=== PATIENT | male | born 1950 | race Caucasian/White ===

== ENCOUNTER 2019-11-29 14:01 | Outpatient (CLI) | payer MEDICARE, BC, SELFPAY | END 2019-11-29 14:02 | disposition home or self-care (01) | PROVIDERS: PCP Family Medicine; Visit Provider Specialist | DX: C80.1 Malignant (primary) neoplasm, unspecified (principal); D22.62 Melanocytic nevi of left upper limb, including shoulder | CPT/HCPCS: 88305; 88342 ==

== ENCOUNTER 2020-02-15 14:40 | Outpatient (CLI) | payer MEDICARE, SELFPAY ==
--- NOTE | ~2020-02-15 | XR_ITS ---
EXAMINATION: XR lg joint inject/asp add, XR lg joint inject/asp w image DATE: 02/15/2020 15:56 INDICATION: Bilateral hip arthritis TECHNIQUE: A time-out was performed to verify the patient's name, date of , and procedure to b e performed. The procedure including the risks, benefits, and alternatives was discussed with the pat ient. Risks discussed included bleeding and infection. The patient understood the risks and agreed to proceed. Attention was first turned to the left hip joint. The skin overlying the left hip joint was prepped and draped in usual sterile fashion. Anesthetic was administered with 1% lidocaine subcutan eously. A 22 G needle was advanced under fluoroscopic guidance into the joint. Injection of 0.6 mL of Omnipaque 240 confirmed intra-articular position of the needle. Subsequently, injectate consistin g of 4 mL of a 1:1 mixture of 0.5% Marcaine: 40 mg/mL Depo-Medrol for a total dose of 80 mg Depo-Medr ol was instilled. Washout of contrast was seen confirming intra-articular administration. The needle was removed and the entry site was cleaned and dressed. Attention was then turned to the right hip. The skin overlying the left hip joint was prepped and imer ped in usual sterile fashion. Anesthetic was administered with 1% lidocaine subcutaneously. A 22 G needle was advanced under fluoroscopic guidance into the joint. Injection of 0.6 mL of Omnipaque 240 confirmed intra-articular position of the needle. Subsequently, injectate consisting of 4 mL of a 1 :1 mixture of 0.5% Marcaine: 40 mg/mL Depo-Medrol for a total dose of 80 mg Depo-Medrol was instilled . Washout of contrast was seen confirming intra-articular administration. The needle was removed and the entry site was cleaned and dressed. There were no immediate complications. Fluoroscopy exposure time was 1.1 minutes. The total number of images was 4. FINDINGS: Real-time fluoroscopy demonstrates the needle in first the left hip joint and subsequently the right hip joint. Patient's pain prior to procedure:5/10 on the right and 3/0 on the left. Patien t's pain following the procedure: 3/10 on the right and 0/10 on the left. IMPRESSION: 1. Left hip joint injection of local anesthetic and steroid with decrease in the patient's presenting pain. 2. Right hip joint injection of local anesthetic and steroid with decrease in the patient's presentin g pain. Reviewed, dictated and finalized at location A. IMPRESSION: 1. Left hip joint injection of local anesthetic and steroid with decrease in th e patient's presenting pain. 2. Right hip joint injection of local anesthetic and steroid with decrease in t he patient's presenting pain.
== END 2020-02-15 14:41 | disposition home or self-care (01) ==
LOC: CHSIMG 14:43
PROVIDERS: PCP Family Medicine; Visit Provider Orthopaedic Surgery
DX: M16.0 Bilateral primary osteoarthritis of hip (principal)
CPT/HCPCS: 20610; 77002; J1030; Q9965

== ENCOUNTER 2021-01-01 08:23 | Outpatient (CLI) | payer MEDICARE, SELFPAY ==
--- NOTE | ~2021-01-01 | XR_ITS ---
EXAMINATION: XR lg joint inject/asp w image, XR lg joint inject/asp add EXAM DATE: 01/01/2021 10:03 (accession [id number]), 01/01/2021 10:04 (accession [id number]) INDICATION: B/L hip arthritis, right hip worse. TECHNIQUE: This procedure was performed by Dr. Howard Jeffries, radiologist. I discussed procedure inclu ding the risks, benefits and alternatives with the patient. Risks discussed included bleeding and inf ection. The patient understood the risks and agreed to proceed. A time-out was performed to verify the patient's name, date of , and procedure. The skin over lying the right joint was prepped and draped in usual sterile fashion. Anesthetic was administered w ith 2 milliliters 1% lidocaine subcutaneously. A 22 G needle was advanced under fluoroscopic guidanc e into the joint. 2 separate syringes of the same mixture was drawn up, each containing 2 cc of Omnip aque 240, 2 cc 0.5% bupivacaine, 80 mg Depo-Medrol. One of these doses was then injected into the rig ht hip. The needle was removed and the entry site was cleaned and dressed. The patient then sat up and laid down in the other direction on the fluoroscopic table and similar st andard sterile fashion used to prepare the left hip. A different 22-gauge needle was then advanced un mark fluoroscopic guidance. The remaining syringe of mixture as above was then injected into this. The re were no immediate complications. The DAP for this procedure was 0.6 Gycm2. A total of 2 images for the right hip, 3 for the left hip w ere saved and sent to PACS, images confirming intra-articular contrast bilaterally. FINDINGS: Real-time fluoroscopy demonstrates the needle and contrast in the right and subsequently le ft hip joint. Patient states preprocedure right hip pain of 6 out of 10 and postprocedure right hip p ain of 6. Left hip had preprocedure pain of 3 out of 10 and postprocedure pain of 3. IMPRESSION: Successful bilateral hip joint injection with steroid, bupivacaine, Omnipaque. Reviewed, dictated and finalized at location B. IMPRESSION: Successful bilateral hip joint injection with steroid, bupivacaine, Omnipaque.
== END 2021-01-01 08:24 | disposition home or self-care (01) ==
PROVIDERS: PCP Family Medicine; Visit Provider Orthopaedic Surgery
DX: M16.11 Unilateral primary osteoarthritis, right hip (principal); M16.12 Unilateral primary osteoarthritis, left hip
CPT/HCPCS: 20610; 77002; J1030; Q9965

== ENCOUNTER 2021-07-30 07:39 | Outpatient (CLI) | payer MEDICARE, SELFPAY ==
--- NOTE | ~2021-07-30 | XR_ITS ---
XR lg joint inject/asp add, XR lg joint inject/asp w image INDICATION: Bilateral hip arthritis. TECHNIQUE: After discussing the procedure with the patient, including the possible risks, complicatio ns, and benefits, oral consent was obtained. A timeout was performed verifying the patient's name, d ate of , and site of injection. The skin overlying the joint was prepped and draped in usual st erile fashion. Anesthetic was administered with 1% lidocaine subcutaneously. A 22 G needle was adva nced under fluoroscopic guidance into the right and left hip joints. Injection of 1cc of Omnipaque 2 40 was performed to verify intra-articular position of the needle. Intra-articular needle position w as confirmed. Subsequently, injectate consisting of 80 mg Depo-Medrol and 2 cc 0.5% Marcaine adminis tered bilaterally were instilled. The needle was removed and the entry site was cleaned and dressed. There were no immediate complications. IMPRESSION: 1: Successful bilateral injection of anesthetic and steroid in bilateral hip joints. Reviewed, dictated and finalized at location B. IMPRESSION: 1: Successful bilateral injection of anesthetic and steroid in bilateral hip luis ints.
== END 2021-07-30 07:40 | disposition home or self-care (01) ==
LOC: CHSIMG 07:42
PROVIDERS: PCP Family Medicine; Visit Provider Orthopaedic Surgery
DX: M16.11 Unilateral primary osteoarthritis, right hip (principal); M16.12 Unilateral primary osteoarthritis, left hip
CPT/HCPCS: 20610; 77002; J1030; Q9965

== ENCOUNTER 2021-10-29 15:57 | Outpatient (CLI) | payer MEDICARE, SELFPAY | END 2021-10-29 15:58 | disposition home or self-care (01) | LOC: CHSOUTPT 16:07 | PROVIDERS: PCP Family Medicine; Visit Provider Specialist | DX: D22.61 Melanocytic nevi of right upper limb, including shoulder (principal) | CPT/HCPCS: 88305; 88342 ==

== ENCOUNTER 2022-02-07 08:05 | Outpatient (CLI) | payer MEDICARE, SELFPAY ==
--- NOTE | ~2022-02-07 | XR_ITS ---
CORRECTED REPORT order change 02/10/22 JM XR lg joint inject/asp w image, XR lg joint inject/asp add 02/07/2022 10:08 (accession [id number]), 02/07/2022 10:16 (accession [id number]) XR lg joint inject/asp w image, XR lg joint inject/asp w image INDICATION: Bilateral hip arthritis TECHNIQUE: After discussing the procedure with the patient, including the possible risks, complications, and benefits, oral consent was obtained. A timeout was performed verifying the patient's name, date of , and site of injection. The skin overlying the joint was prepped and draped in usual sterile fashion. Anesthetic was administered with 1% lidocaine subcutaneously. A 22 G needle was advanced under fluoroscopic guidance into the right and left hip joints. Injection of 1cc of Omnipaque 240 was performed to verify intra- articular position of the needle. Intra-articular needle position was confirmed. Subsequently, injectate consisting of 80 mg Depo-Medrol and 2 cc 0.5% Marcaine were instilled. The needle was removed and the entry site was cleaned and dressed. There were no immediate complications.] IMPRESSION: 1.: Successful bilateral injection of anesthetic and steroid into each hip joint. Reviewed, dictated and finalized at location B. MTDD IMPRESSION: 1.: Successful bilateral injection of anesthetic and steroid into each hip kym nt.
== END 2022-02-07 08:06 | disposition home or self-care (01) ==
LOC: CHSIMG 08:09
PROVIDERS: PCP Family Medicine; Visit Provider Orthopaedic Surgery
DX: M16.0 Bilateral primary osteoarthritis of hip (principal)
CPT/HCPCS: 20610; 77002; J1030; Q9965

== ENCOUNTER 2022-10-16 09:45 | Outpatient (CLI) | payer MEDICARE, SELFPAY ==
--- NOTE | ~2022-10-16 | XR_ITS ---
EXAMINATION: XR lg joint inject/asp w image, XR lg joint inject/asp add DATE: 10/16/2022 10:43 INDICATION: Bilateral hip osteoarthritis with pain TECHNIQUE: A time-out was performed to verify the patient's name, date of , and procedure to b e performed. The procedure including the risks, benefits, and alternatives was discussed with the pat ient. Risks discussed included bleeding and infection. The patient understood the risks and agreed to proceed. Attention was first turned to the right hip. The skin overlying the right hip joint was pre pped and draped in usual sterile fashion. Anesthetic was administered with 1% lidocaine subcutaneous ly. A 22 G needle was advanced under fluoroscopic guidance into the joint. Injection of 1 mL of Omn ipaque 240 confirmed intra-articular position of the needle. Subsequently, injectate consisting of 4 mL of a 1:1 mixture of 0.5% Marcaine: 40 mg/mL Depo-Medrol for a total dosage of 80 mg Depo-Medrol w as instilled. Washout of contrast was seen confirming intra-articular administration. The needle was removed and the entry site was cleaned and dressed. Attention was then turned to the left hip. The skin overlying the left hip joint was prepped and drap ed in usual sterile fashion. Anesthetic was administered with 1% lidocaine subcutaneously. A 22 G n eedle was advanced under fluoroscopic guidance into the joint. Injection of 1 mL of Omnipaque 240 co nfirmed intra-articular position of the needle. Subsequently, injectate consisting of 4 mL of a 1:1 mixture of 0.5% Marcaine: 40 mg/mL Depo-Medrol for a total dosage of 80 mg Depo-Medrol was instilled. Washout of contrast was seen confirming intra-articular administration. The needle was removed and t he entry site was cleaned and dressed. There were no immediate complications. Fluoroscopy exposure ti me was 0.2 minutes. The total number of images was 4. FINDINGS: Real-time fluoroscopy demonstrates the needle in the right hip joint and subsequently in th e left hip joint. Patient's pain prior to procedure:6/10. Patient's pain following the procedure: 0/ 10. IMPRESSION: 1. Sessile left and right hip joint injections of local anesthetic and steroid with decrease in the p atient's presenting pain. Reviewed, dictated and finalized at location A. 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 Sessile left and right hip joint injections of local anesthetic and steroid with decrease in the patient's presenting pain.
== END 2022-10-16 09:46 | disposition home or self-care (01) ==
PROVIDERS: PCP Family Medicine; Visit Provider Orthopaedic Surgery
DX: M16.0 Bilateral primary osteoarthritis of hip (principal)
CPT/HCPCS: 20610; 77002; J1030

== ENCOUNTER 2022-11-18 16:42 | Outpatient (CLI) | payer MEDICARE, SELFPAY | END 2022-11-18 16:43 | disposition home or self-care (01) | LOC: CHSLAB 16:46 | PROVIDERS: PCP Family Medicine; Visit Provider Specialist | DX: C44.629 Squamous cell carcinoma of skin of left upper limb, including shoulder (principal) | CPT/HCPCS: 88305 ==

== ENCOUNTER 2024-02-16 13:24 | Outpatient (CLI) | payer MEDICARE, SELFPAY ==
--- NOTE | ~2024-02-16 | XR_ITS ---
EXAMINATION: XR lg joint inject/asp w image, XR lg joint inject/asp add DATE: 02/16/2024 14:40 INDICATION: Bilateral hip pain TECHNIQUE: A time-out was performed to verify the patient's name, date of , and procedure to b e performed. The procedure including the risks, benefits, and alternatives was discussed with the pat ient. Risks discussed included bleeding and infection. The patient understood the risks and agreed to proceed. Attention was first turned to the right hip. The skin overlying the right hip joint was pre pped and draped in usual sterile fashion. Anesthetic was administered with 1% lidocaine subcutaneous ly. A 22 G needle was advanced under fluoroscopic guidance into the joint. Injection of 1 mL of Omn ipaque 240 confirmed intra-articular position of the needle. Subsequently, injectate consisting of 3 mL of a 2:1 mixture of 0.5% Marcaine: 80 mg/mL Depo-Medrol for a total dose of 80 mg Depo-Medrol was instilled. Washout of contrast was seen confirming intra-articular administration. The needle was re moved and the entry site was cleaned and dressed. Attention was then turned to the left hip. The skin overlying the right hip joint was prepped and imer ped in usual sterile fashion. Anesthetic was administered with 1% lidocaine subcutaneously. A 22 G needle was advanced under fluoroscopic guidance into the joint. Injection of 1 mL of Omnipaque 240 c onfirmed intra-articular position of the needle. Subsequently, injectate consisting of 3 mL of a 2:1 mixture of 0.5% Marcaine: 80 mg/mL Depo-Medrol for a total dose of 80 mg Depo-Medrol was instilled. Washout of contrast was seen confirming intra-articular administration. The needle was removed and th e entry site was cleaned and dressed. There were no immediate complications. Fluoroscopy exposure june e for the combined procedures was 0.1 minutes. The total number of images was 4. Total DAP was 1.109 Gycm^2. FINDINGS: Real-time fluoroscopy demonstrates the needle in the right hip joint and subsequently in th e left hip joint. Patient's pain prior to procedure:6/10. Patient's pain following the procedure: 0/ 10. IMPRESSION: 1. Successful right hip joint injection of local anesthetic and steroid with decrease in the patient' s presenting pain. Line 2. Successful left hip joint injection of local anesthetic and steroid with decrease in the patient's presenting pain. Reviewed, dictated and finalized at location A. IMPRESSION: 1. Successful right hip joint injection of local anesthetic and steroid with de crease in the patient's presenting pain. Line 2. Successful left hip joint injection of local anesthetic and steroid with dec rease in the patient's presenting pain.
== END 2024-02-16 13:25 | disposition home or self-care (01) ==
LOC: ANHIMG 13:25
PROVIDERS: PCP Family Medicine; Visit Provider Orthopaedic Surgery
DX: M25.551 Pain in right hip (principal); M25.552 Pain in left hip
CPT/HCPCS: 20610; 77002; J1010; Q9966; Q9967

== ENCOUNTER 2024-11-18 12:13 | Outpatient (CLI) | payer MEDICARE, SELFPAY ==
--- NOTE | ~2024-11-18 | PE_ITS ---
EXAMINATION: PET_PETPSMAST_PT DATE: 11/18/2024 15:19 INDICATION: Prostate cancer TECHNIQUE: 4.054 mCi of Illucix Ga-68([id number]) was administered i.v. Low dose computed gabriela graphy (CT) images were acquired from the base of the brain to the base of the brain to the proximal thighs for attenuation correction and anatomic localization. Positron emission tomography (PET) image s were acquired in the same distribution beginning 92 minutes after injection. Images including fused PET/CT images were reconstructed in axial, coronal, and sagittal planes. Automated exposure control technique was employed. The dose-length product was 1276.25mGy-cm. COMPARISON: None FINDINGS: Head/neck: Typical pattern of symmetric physiologic increased activity in the lacrimal, parotid and submandibula r glands as well as along the mucosa of the nasal and oral cavities, pharynx and hypopharynx. 4.5 cm left thyroid mass. No pathologically enlarged cervical lymphadenopathy or suspicious foci of increase d uptake in the visualized head or neck. Chest: Mild elevation the left hemidiaphragm. Mild peripheral atelectasis/scarring at the bilateral lower lyn ngs. No suspicious pulmonary nodules, pneumonia or pleural effusion. Heart size is normal. No pericar dial effusion. Thoracic aorta is normal in caliber. No pathologically enlarged or PSMA avid thoracic lymphadenopathy. Abdomen/pelvis/proximal thighs: Physiologic renal accumulation and excretion of activity in the kidneys, bladder and along portions o f ureters. Photopenic defects associated with bilateral exophytic low-attenuation renal cysts the lar gest measuring 7 cm at the lower pole of the right kidney. There are couple prominent calcified bladd er stones in the dependent bladder. There is an approximately 1 cm focus of increased PSA may uptake with maximal SUV of 13.7 at the left posterior margin of the prostate which is mildly enlarged measur ing 10.7 x 3.9 cm. Normal degree and slightly heterogenous pattern of increased uptake throughout the liver and spleen without radiologic correlate or dominant PSMA avid lesion. 1 cm low-attenuation cys t in the left hepatic lobe. The gallbladder, pancreas and bilateral adrenal glands are normal. Modera te uptake scattered throughout the bowels with typical duodenal and proximal jejunal predominance and without radiologic correlate, also likely physiologic. Postoperative change of prior right inguinal hernia repair. There is a small fat-containing left inguinal hernia also a suggestion of prior hernia repair. No other abnormal foci of increased uptake or pathologically enlarged lymphadenopathy in the abdomen, pelvis or proximal thighs. Musculoskeletal: Mild lumbar levocurvature with moderate spondylosis. There are bridging osteophytes at multiple level s consistent with diffuse idiopathic skeletal hyperostosis (DISH). No suspicious lytic, blastic or ab normally PSA may avid bone lesions. IMPRESSION: 1. Small focus of increased pacemaker activity at the left posterior prostate consistent with primary prostate cancer. No lesions suspicious for metastatic disease. 2. 4.5 cm left thyroid mass. Recommend thyroid ultrasound for risk stratification. 3. Small fat-containing left inguinal hernia with change of prior bilateral inguinal hernia repairs. 4. Bladder stones. Reviewed, dictated and finalized at location B. IMPRESSION: 1. Small focus of increased pacemaker activity at the left posterior prostate c onsistent with primary prostate cancer. No lesions suspicious for metastatic di sease. 2. 4.5 cm left thyroid mass. Recommend thyroid ultrasound for risk stratificati on. 3. Small fat-containing left inguinal hernia with change of prior bilateral ing uinal hernia repairs. 4. Bladder stones.
--- OUTSIDE RECORDS SUMMARY | 2024-11-18 13:02 | XMS_ITS | Clinical Summary ---
Author Organization [facility] Address [address] [place] [id number] Care Team Providers Care Hand Fur Cleaner Name Role Phone Antelmo Topete MD Primary Care Provider [phone]- [phone] Allergies No known active allergies Medications ELIQUIS 5 mg tablet Take 5 mg by mouth 2 (two) times a day 11 09/21/2018 Active bisacodyl EC (DULCOLAX EC) 5 mg EC tablet TAKE 2 TABLETS DAILY DIRECTED 0 09/24/2018 Active doxazosin (CARDURA) 1 mg tablet Take 1 mg by mouth daily 3 09/29/2018 Active lisinopril (PRINIVIL,ZESTR IL) 20 mg tablet daily Active Active Problems No known active problems Surgical History Surgery Date Site/Laterality Comments AR UNLISTED PROCEDURE ABDOME N PERITONEUM & OMENTUM Hernia Repair - (Added by TW Conv) AR ADJT TIS REARGMT EYE/NOSE/EAR/LIP 10.1-30.0 SQCM Adjacent Tissue Transfer - Ears; 10.1 To 30.0 Sq Cm - (Added by TW Conv) AR FTH/GFT FREE W/DIRECT MATT SURE N/E/E/L 20 SQ CM/< Full Thickness Graft Ears 20 Sq Cm Or Less - (Added by TW Conv) Medical History Medical History Date Comments Closed fracture of shaft of left humerus Arm fracture, left - (Added by TW Conv) Personal history of malignant neoplasm History of malignant neoplasm - (Added by TW Conv) Personal history of 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 nous thrombosis and embolism H/O blood clots - (Added by TW Conv) Personal history of other di seases of the circulatory system History of hypertension - (A dded by TW Conv) Family History Medical History Relation Name Comments Diabetes Father Family history of diabetes mellitus - (Added by TW Conv) Heart attack Father Family history of myocardial infarction - (Added by TW Conv) Heart disease Father Family history of cardiac disorder - (Added by TW Conv) Breast cancer Mother Family history of malignant neoplasm of breast - (Added by TW Conv) Cancer Mother Family history of malignant neoplasm - (Added by TW Conv) Heart disease Sister Family history of cardiac disorder - (Added by TW Conv) Relation Name Status Comments Father Mother Sister Social History Tobacco Use Types Packs/Day Years Used Date Smoking Tobacco: Never Smokeless Tobacco: Former Sex and Gender Information Value Date Recorded Sex Assigned at Not on file Legal 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 Gender Identity Not on file Sexual Orientation Not on file Obstetrics History Last Filed Vital Signs Vital Sign Reading Time Taken Comments Blood Pressure 170/127 12/20/2019 7:44 AM CDT Pulse 65 12/20/2019 7:44 AM CDT Temperature 36.8 C (98.3 F) 12/20/2019 7:44 AM CDT Respiratory Rate - - Oxygen Saturation 100% 12/20/2019 7:44 AM CDT Inhaled Oxygen Concentration - - Weight 99.8 kg (220 lb) 07/17/2017 12:52 PM GRANULATOR TENDER Height 194.3 cm (6' 4.5 ) 07/17/2017 12:52 PM CS T Body Mass Index 26.43 07/17/2017 12:52 PM GRANULATOR TENDER Plan of Treatment Not on file Insurance MEDICARE [facility] MEDICARE SUPPLEMENT Care Teams Hand Fur Cleaner Relationship Specialty Start Date End Date Antelmo Topete MD [address] [place] [address] PCP - General 06/11/17
--- OUTSIDE RECORDS SUMMARY | 2024-11-18 13:02 | XMS_ITS | Encounter Summary ---
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 Legal Sex Male 10:25 PM CREATIVE STRATEGIST Gender Identity Not on file Sexual Orientation Not on file documented as of this encounter Plan of Treatment Not on file documented as of this encounter Visit Diagnoses Not on filedocumented in this encounter Additional Health Concerns Infection Onset Date Last Indicated Resolved Time COVID-19 Rule Out 01/21/2022 01/21/2022 01/21/2022 7:54 PM CDT COVID-19 Confirmed 01/21/2022 01/21/2022 12:33 AM CDT COVID-19 Rule Out 03/08/2022 03/08/2022 03/08/2022 6:37 PM CDT documented as of this encounter Care Teams Lead Supply Worker Relationship Specialty Start Date End Date Antelmo Topete MD [address] [place] [address] PCP - General FAMILY PRACTICE 09/16/19 documented as of this encounter
--- OUTSIDE RECORDS SUMMARY | 2024-11-18 13:02 | XMS_ITS | Referral Summary ---
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 MEDICARE SUPPLEMENT Care Teams Stencil Cutter Relationship Specialty Start Date End Date Antelmo Topete MD [address] [place] [address] [place] [address] PCP - General 06/11/17
--- OUTSIDE RECORDS SUMMARY | 2024-11-18 13:02 | XMS_ITS | Clinical Summary ---
Author Organization [facility] Address [address] [place] [address] Care Team Providers Care Drafter Engineering Name Role Phone Antelmo Topete MD Primary Care Provider [phone] Allergies No known active allergies Medications amLODIPine 5 MG tablet Take 1 tablet (5 mg total) by mouth nightly. 11/02/2019 Active apixaban 5 MG tablet Take 1 tablet (5 mg total) by mouth 2 (two) times daily. 09/21/2018 Active aspirin EC 81 MG tablet Take 1 tablet (81 mg total) by mouth daily. Active Multiple Vitamins-Minera ls (MULTIVITAMIN ADULT OR) Take 1 tablet by mouth daily. Active Glucosamine-Cho ndroitin (OSTEO BI-FLEX REGULAR STRENGTH OR) Take 1 tablet by mouth daily. Active tamsulosin 0.4 MG Cap Take 1 capsule (0.4 mg total) by mouth nightly. Active gabapentin (NEURONTIN) 400 MG capsule Take 1 capsule (400 mg total) by mouth nightly at bedtime. Active Active Problems Problem Noted Date Diagnosed Date Primary osteoarthritis of right hip 01/31/2020 Encounters Date Type Department Care Team Description 10/21/2024 1:00 PM CONSTRUCTION CARPENTER - 10/21/2024 1:53 PM CONSTRUCTION CARPENTER Surgery [facility] [place] [address] Antonio Varela MD TRANSRECTAL ULTRASOUND GUIDED FUSION PROSTATE BIOPSY 10/21/2024 12:53 PM CONSTRUCTION CARPENTER Anesthesia Event [facility] [place] [address] Magan Hutchinson MD Jackson, Samantha Rae, DRY CURE WORKER 10/21/2024 10:50 AM CONSTRUCTION CARPENTER - 10/21/2024 2:45 PM CONSTRUCTION CARPENTER Hospital Encounter [facility] [place] [address] Antonio Varela MD Discharge Disposition: Home or Self Care (Routine Discharge) 10/21/2024 Travel 10/14/2024 Travel from Last 3 Months Family History Medical History Relation Comments Heart Attack Brother 1 Heart Disease Brother 1 Sudden Brother 2 Sudden Brother 3 Heart Attack Father Heart Disease Father Cancer Mother Hypertension Sister 1 Arthritis Sister 2 No Known Problems Sister 3 Relation Status Comments Brother 1 Brother 2 Brother 3 Father Mother Sister 1 Alive Sister 2 Alive Sister 3 Alive Social History Tobacco Use Types Packs/Day Years Used Date Smoking Tobacco: Light Smoker Cigars Smokeless Tobacco: Never Alcohol Use Standard Drinks/Week Comments Yes 1.7 (1 standard drink = 0.6 oz p ure alcohol) Sex and Gender Information Value Date Recorded Sex Assigned at Male 10/21/2024 10:48 AM CONSTRUCTION CARPENTER Legal Sex Male 10:25 PM CONSTRUCTION CARPENTER Gender Identity Not on file Sexual Orientation Not on file Last Filed Vital Signs Vital Sign Reading Time Taken Comments Blood Pressure 151/66 10/21/2024 2:30 PM CONSTRUCTION CARPENTER Pulse 65 10/21/2024 2:30 PM CONSTRUCTION CARPENTER Temperature 36.5 C (97.7 F) 10/21/2024 2:30 PM CONSTRUCTION CARPENTER Respiratory Rate 16 10/21/2024 2:30 PM CONSTRUCTION CARPENTER Oxygen Saturation 100% 10/21/2024 2:30 PM CONSTRUCTION CARPENTER Inhaled Oxygen Concentration - - Weight 102.7 kg (226 lb 6.6 oz) 025 11:20 AM CONSTRUCTION CARPENTER Height 193 cm (6' 4 ) 10/21/2024 11:20 AM CONSTRUCTION CARPENTER Body Mass Index 27.56 10/21/2024 11:20 AM CONSTRUCTION CARPENTER Plan of Treatment Health Maintenance Due Date Last Done Comments Pneumococcal Vaccine: 65+ Years (1 of 2 - PCV) 1958 Hepatitis C 1970 DTaP, Tdap and Td Vaccines ( 1 - Tdap) 1971 Zoster Vaccines (1 of 2) 2002 AAA SCREENING 2017 Annual Medicare Wellness Visit 2017 COVID-19 Vaccine (2023-2 5 season) 2024 Influenza Adult (#1) 2024 RSV Immunization or 60+ Years (1 - 1-dose 75+ series) 2027 Colorectal Cancer Screening Colonoscopy (10 Years) 03/11/2032 03/11/2022, 03/11/2022 Meningococcal B Vaccine Aged Out No l onger eligible based on patient's age to complete this topic Meningococcal Vaccine Aged Out No ford jake eligible based on patient's age to complete this topic RSV Immunizations Under 20 Months Aged Out No longer eligible b ased on patient's age to complete this topic Procedures Procedure Name Priority Date/Time Associated Diagnosis Comments BIOPSY OF PROSTATE,NEEDLE/PUN CH 10/21/2024 12:53 PM CONSTRUCTION CARPENTER ABNORMAL PROSTATE SPECIFIC ANTIGEN R97.20 Case Notes SCHED BY FAX 10/07/2024 LCS PHONE ASSESS PATHOLOGY Routine 10/21/2024 12:00 AM CONSTRUCTION CARPENTER COLONOSCOPY 03/11/2022 6:47 AM CDT from Last 3 Months or Most Recently Relevant to Health Maintenance Results * Pathology (10/21/2024 12:00 AM CONSTRUCTION CARPENTER) PATHOLOGY [facility] Department of Laboratory Medicine [address] [place] [id number] , extension [id number] Pathology Report Surgical Pathology Report Name: MARK ANTHONY VASQUEZ Skyler KO Specimen #: [id number] Age: 11 1950 (Age: 74) Location: [facility] Sex: M Procedure Date: 10/21/2024 Hospital #: [id number] Date Received: 10/24/2024 Date Reported: 10/26/2024 Provider: ANTONIO VARELA MD Source: A: Prostate, ROHINI #1, needle biopsy B: Prostate, left lateral apex, needle biopsy C: Prostate, left lateral mid, needle biopsy D: Prostate, left lateral base, needle biopsy E: Prostate, left medial apex, needle biopsy F: Prostate, left medial mid, needle biopsy G: Prostate, left medial base, needle biopsy H: Prostate, right lateral apex, needle biopsy I: Prostate, right lateral mid, needle biopsy J: Prostate, right lateral base, needle biopsy K: Prostate, right medial apex, needle biopsy L: Prostate, right medial mid, needle biopsy M: Prostate, right medial base, needle biopsy Clinical History: Abnormal PSA. FINAL DIAGNOSIS: A. Prostate, region of interest #1, core biopsies: -Acinar adenocarcinoma, grade group 5 (Richwood score 5+4=9), involving 3 of 3 cores and 10% of total tissue. -See comment. B. Prostate, left lateral apex, core biopsy: -Benign prostatic parenchyma. C. Prostate, left lateral mid, core biopsy: -Benign prostatic parenchyma. -See comment. D. Prostate, left lateral base, core biopsy: -Acinar adenocarcinoma, grade group 3 (Richwood score 4+3=7, with 80% pattern 4) involving 10% of a single core. -See comment. E. Prostate, left medial apex, core biopsy: -Benign prostatic parenchyma. F. Prostate, left medial mid, core biopsy: -Acinar adenocarcinoma, grade group 4 (Richwood score 4+4=8) involving 5% of a single core. -See comment. G. Prostate, left medial base, core biopsy: -Benign prostatic parenchyma. H. Prostate, right lateral apex, core biopsy: -Acinar adenocarcinoma, grade group 1 (Richwood score 3+3=6) involving 20% of a single core. -See comment. I. Prostate, right lateral mid, core biopsy: -Acinar adenocarcinoma, grade group 1 (Wayne score 3+3=6) involving 10% of a single core. -See comment. J. Prostate, right lateral base, core biopsy: -Benign prostatic parenchyma. K. Prostate, right medial apex, core biopsy: -Benign prostatic parenchyma. L. Prostate, right medial mid, core biopsy: -Benign prostatic parenchyma. M. Prostate, right medial base, core biopsy: -Benign prostatic parenchyma. Diagnosis Comment: Immunohistochemical triple stain for AMACR/high molecular keratin/p63 was performed on specimens A, C, D, F, H, and I to confirm the diagnosis. The glands of interest in specimen C show intact basal cells by high molecular keratin/p63 in keeping with benign prostatic parenchyma. The remaining specimens show atypical glands with AMACR expression and lack of basal cells by high molecular keratin/p63 in keeping with invasive acinar adenocarcinoma. Gross Description: A. Received in formalin, labeled with a patient label and as ROHINI #1 are 3 less than 0.1 cm in diameter delicate white-mason tissue cores that range from 1.4 to 1.5 cm in length. The specimen is entirely submitted in cassette A1. B. Received in formalin, labeled with a patient label and as left lateral apex is a single less than 0.1 cm in diameter delicate white-mason tissue core that is 1.5 cm in length. The specimen is entirely submitted in cassette B1. C. Received in formalin, labeled with a patient label and as left lateral mid is a less than 0.1 cm in diameter delicate white-mason tissue core that is 1.5 cm in length. The specimen is entirely submitted in cassette C1. D. Received in formalin, labeled with a patient label and as left lateral base is a single less than 0.1 cm in diameter delicate white-mason tissue core that is 1.3 cm in length. The specimen is entirely submitted in cassette D1. E. Received in formalin, labeled with a patient label and as left medial apex is a single less than 0.1 cm in diameter delicate white-mason tissue core that is 1.5 cm in length. The specimen is entirely submitted in cassette E1. F. Received in formalin, labeled with a patient label and as left medial mid is a single less than 0.1 cm in diameter delicate white-mason tissue core that is 1.2 cm in length. The specimen is entirely submitted in cassette F1. G. Received in formalin, labeled with a patient label and as left medial base is a single less than 0.1 cm in diameter delicate white-mason tissue core that is 1.5 cm in length. The specimen is entirely submitted in cassette G1. H. Received in formalin, labeled with a patient label and as right lateral apex is a single less than 0.1 cm in diameter delicate white-mason tissue core that is 1.3 cm in length. The specimen is entirely submitted in cassette H1. I. Received in formalin, labeled with a patient label and as right lateral mid is a single less than 0.1 cm in diameter delicate white-mason tissue core that is 1.5 cm in length. The specimen is entirely submitted in cassette I1. J. Received in formalin, labeled with a patient label and as right lateral base is a single less than 0.1 cm in diameter delicate white-mason tissue core that is 1.3 cm in length. The specimen is entirely submitted in cassette J1. K. Received in formalin, labeled with a patient label and as right medial apex is a single less than 0.1 cm in diameter delicate white-mason tissue core that is 1.5 cm in length. The specimen is entirely submitted in cassette K1. L. Received in formalin, labeled with a patient label and as right medial mid is a single less than 0.1 cm in diameter delicate white-mason tissue core that is 1.5 cm in length. The specimen is entirely submitted in cassette L1. M. Received in formalin, labeled with a patient label and as right medial base is a less than 0.1 cm in diameter delicate white-mason tissue core that is 1.3 cm in length. The specimen is entirely submitted in cassette M1. All immunohistochemical and histochemical tests were developed by and performed at [facility], [address] [place] [address]. All tests reported here have not been cleared or approved by the U.S. Food and Drug Administration (FDA). This laboratory is regulated under CLIA as qualified to perform high-complexity testing. These tests are used for clinical purposes. They should not be regarded as investigational or for research. Positive and negative controls show appropriate reactivity. Gross examination (when applicable), interpretation, and sign out were performed at [facility], [address] [place] [address]. Electronically Signed Out YOHANNES DIEZ MD [facility] TISSUE PROSTATE / Unknown 11:56 AM CONSTRUCTION CARPENTER Tissue specimen (specimen) PROSTATE / Unknown 10/21/2024 11:56 AM CONSTRUCTION CARPENTER Tissue specimen (specimen) PROSTATE / Unknown 10/21/2024 11:56 AM CONSTRUCTION CARPENTER Tissue specimen (specimen) PROSTATE / Unknown 10/21/2024 11:56 AM CONSTRUCTION CARPENTER Tissue specimen (specimen) PROSTATE / Unknown 10/21/2024 11:56 AM CONSTRUCTION CARPENTER Tissue specimen (specimen) PROSTATE / Unknown 10/21/2024 11:56 AM CONSTRUCTION CARPENTER Tissue specimen (specimen) PROSTATE / Unknown 10/21/2024 11:56 AM CONSTRUCTION CARPENTER Tissue specimen (specimen) PROSTATE / Unknown 10/21/2024 11:56 AM CONSTRUCTION CARPENTER Tissue specimen (specimen) PROSTATE / Unknown 10/21/2024 11:56 AM CONSTRUCTION CARPENTER Tissue specimen (specimen) PROSTATE / Unknown 10/21/2024 11:56 AM CONSTRUCTION CARPENTER Tissue specimen (specimen) PROSTATE / Unknown 10/21/2024 11:56 AM CONSTRUCTION CARPENTER Tissue specimen (specimen) PROSTATE / Unknown 10/21/2024 11:56 AM CONSTRUCTION CARPENTER Tissue specimen (specimen) PROSTATE / Unknown 10/21/2024 11:56 AM CONSTRUCTION CARPENTER Antonio Varela MD PATHOLOGY/CYTOLOGY ORDERABLES F inal Result [facility] [address] [place] [address], [id number] * Colonoscopy (03/11/2022 6:47 AM CDT) Thong Lott MD GI PROCEDURE ORDERABLES Final Result from Last 3 Months or Most Recently Relevant to Health Maintenance Insurance MEDICARE Care Teams Drafter Engineering Relationship Specialty [place] [address] [place] [address] [place] [id number] PCP - General FAMILY PRACTICE 09/16/19
== END 2024-11-18 12:14 | disposition home or self-care (01) ==
PROVIDERS: PCP Family Medicine; Visit Provider Urology
DX: C61 Malignant neoplasm of prostate (principal); K40.90 Unilateral inguinal hernia, without obstruction or gangrene, not specified as recurrent; N21.0 Calculus in bladder; E07.9 Disorder of thyroid, unspecified
CPT/HCPCS: 78815; A9596

== ENCOUNTER 2024-12-14 13:45 | Outpatient (CLI) | payer MEDICARE, SELFPAY ==
--- NOTE | ~2024-12-14 | XR_ITS ---
EXAMINATION: XR lg joint inject/asp w image, XR lg joint inject/asp add DATE: 12/14/2024 14:51 INDICATION: Bilateral hip osteoarthritis present with bilateral hip pain TECHNIQUE: A time-out was performed to verify the patient's name, date of , and procedure to b e performed. The procedure including the risks, benefits, and alternatives was discussed with the pat ient. Risks discussed included bleeding and infection. The patient understood the risks and agreed to proceed. Attention was first turned to the right hip joint. The skin overlying the right hip joint w as prepped and draped in usual sterile fashion. Anesthetic was administered with 1% lidocaine subcut aneously. A 22 G needle was advanced under fluoroscopic guidance into the joint. Injection of 1 mL of Omnipaque 240 confirmed intra-articular position of the needle. Subsequently, injectate consistin g of 3 mL of a 2:1 mixture of 0.5% bupivacaine: 80 mg/mL Depo-Medrol for a total dosage of 80 mg Depo -Medrol was instilled. Washout of contrast was seen confirming intra-articular administration. The ne edle was removed and the entry site was cleaned and dressed. Attention was then turned to the contralateral left hip. The skin overlying the right hip joint was p repped and draped in usual sterile fashion. Anesthetic was administered with 1% lidocaine subcutaneo usly. A 22 G needle was advanced under fluoroscopic guidance into the joint. Injection of 1 mL of O mnipaque 240 confirmed intra-articular position of the needle. Subsequently, injectate consisting of 3 mL of a 2:1 mixture of 0.5% bupivacaine: 80 mg/mL Depo-Medrol for a total dosage of 80 mg Depo-Med rol was instilled. Washout of contrast was seen confirming intra-articular administration. The needle was removed and the entry site was cleaned and dressed. There were no immediate complications. Fluor oscopy exposure time for both injections was 0.2 minutes. The total number of images was 4. FINDINGS: Real-time fluoroscopy demonstrates the needle and contrast in both the right hip and left h ip joint spaces. Patient's pain prior to procedure:9/10. Patient's pain following the procedure: 7/1 0. IMPRESSION: 1. Successful right hip joint injection of local anesthetic and steroid with decrease in the patient' s presenting pain. 2. Successful left hip joint injection of local anesthetic and steroid with decrease in the patient's presenting pain. Reviewed, dictated and finalized at location A. IMPRESSION: 1. Successful right hip joint injection of local anesthetic and steroid with de crease in the patient's presenting pain. 2. Successful left hip joint injection of local anesthetic and steroid with dec rease in the patient's presenting pain.
--- OUTSIDE RECORDS SUMMARY | 2024-12-14 14:57 | XMS_ITS | Clinical Summary ---
Author Organization [facility] Address [address] [place] [id number] Care Team Providers Care Counter Hop Name Role Phone Antelmo Topete MD Primary Care Provider [phone] Allergies No known active allergies Medications ELIQUIS [...] problems Surgical History Surgery Date Site/Laterality Comments TN UNLISTED PROCEDURE ABDOME N PERITONEUM & OMENTUM Hernia Repair - (Added by TW Conv) TN ADJT TIS REARGMT EYE/NOSE/EAR/LIP 10.1-30.0 SQCM Adjacent Tissue Transfer - Ears; 10.1 To 30.0 Sq Cm - (Added by TW Conv) TN FTH/GFT FREE W/DIRECT MATT SURE N/E/E/L 20 [...] on file Legal Sex Male 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
--- OUTSIDE RECORDS SUMMARY | 2024-12-14 14:57 | XMS_ITS | Encounter Summary ---
Author Organization [facility] Address [address] [place] [address] Care Team Providers Care Global Sales Director Name Role Phone Antelmo Topete MD Primary Care Provider [phone] Encounter Details Date Type Department Care Team (Late st Contact Info) Description 02/05/2019 Abstract [facility] CONVERSION [address] [place], [place] [id number] , Generic Conversion, Social History Tobacco Use Types Packs/Day Years Used Date Smoking Tobacco: Never Assessed Sex and Gender Information Value Date Recorded Sex Assigned at Male 10/21/2024 10:48 AM JAVA ANDROID DEVELOPER Legal Sex Male 10:25 PM JAVA ANDROID DEVELOPER Gender Identity Not on file Sexual Orientation Not on file documented as of this encounter Plan of Treatment Upcoming Encounters Date Type Department Care Team (Latest Contact Info) Description 12/15/2024 11:30 AM T Hospital Encounter [facility] [place] [address] Antonio Lucio MD [address] [facility] [address] [place] [address] 12/29/2024 7:30 AM T Hospital Encounter [facility] [place] [address] Antonio Lucio MD [address] [facility] [address] [place] [address] 12/29/2024 7:30 AM CDT Anesthesia Event [facility] [place] [address] Ruth Carranza FNP [address] [place] [address] 12/29/2024 7:30 AM CDT - 12/29/2024 11:58 AM CDT Surgery [facility] [place] [address] Antonio Lucio MD [address] [facility] [address] [place] [address] ROBOTIC XI ASSISTED LAPAROSCOPIC PROSTATECTOMY WITH BILATERAL PELVIC LYMPH NODE DISSECTION AND CYSTOLITHOLALPAXY BLADDER STONE REMOVAL Scheduled Procedures Name Priority Associated Diagnoses Date/Ti me ROBOTIC XI PROSTATECTOMY PROSTATE CANCER C61 12/29/2024 7:30 AM CDT documented as of this encounter Visit Diagnoses Not on filedocumented in this encounter Additional Health Concerns Infection Onset Date Last Indicated Resolved Time COVID-19 Rule Out 01/21/2022 01/21/2022 01/21/2022 7:54 PM CDT COVID-19 Confirmed 01/21/2022 01/21/2022 12:33 AM CDT COVID-19 Rule Out 03/08/2022 03/08/2022 03/08/2022 6:37 PM CDT documented as of this encounter Care Teams Global Sales Director Relationship Specialty Start Date End Date Antelmo Topete MD [address] [place] [address] [place] [phone] PCP - General FAMILY PRACTICE 09/16/19 documented as of this encounter
--- OUTSIDE RECORDS SUMMARY | 2024-12-14 14:57 | XMS_ITS | Referral Summary ---
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
--- OUTSIDE RECORDS SUMMARY | 2024-12-14 14:57 | XMS_ITS | Clinical Summary ---
Author Organization [facility] Address [address] [place] [address] Care Team Providers Care All Round [employer]cher Name Role Phone Clarence Tobar MD Primary Care Provider [phone] Allergies No known active allergies Medications amLODIPine [...] Encounters Date Type Department Care Team Description 11/28/2024 2:30 PM CDT - 11/28/2024 11:59 PM CDT Hospital Encounter [facility] [address] [place] [address] Clarence Tobar MD Discharge Disposition: Home or Self Care (Routine Discharge) 11/28/2024 Travel 10/21/2024 1:00 PM MANAGER USER EXPERIENCE - 10/21/2024 1:53 PM MANAGER USER EXPERIENCE Surgery [place] [address] Antonio Varela MD TRANSRECTAL ULTRASOUND GUIDED FUSION PROSTATE BIOPSY 10/21/2024 12:53 PM MANAGER USER EXPERIENCE Anesthesia Event [facility] [place] [place] [address] Magan Hutchinson MD Jackson, Samantha Rae, COMPOSITE WORKER 10/21/2024 10:50 AM MANAGER USER EXPERIENCE - 10/21/2024 2:45 PM MANAGER USER EXPERIENCE Hospital Encounter [facility] [place] [address] Antonio Varela MD Discharge Disposition: Home or [...] Sex Assigned at Male 10/21/2024 10:48 AM MANAGER USER EXPERIENCE Legal Sex Male 10:25 PM MANAGER USER EXPERIENCE Gender Identity Not on file Sexual Orientation Not on file Last Filed Vital Signs Vital Sign Reading Time Taken Comments Blood Pressure 151/66 10/21/2024 2:30 PM MANAGER USER EXPERIENCE Pulse 65 10/21/2024 2:30 PM MANAGER USER EXPERIENCE Temperature 36.5 C (97.7 F) 10/21/2024 2:30 PM MANAGER USER EXPERIENCE Respiratory Rate 16 10/21/2024 2:30 PM MANAGER USER EXPERIENCE Oxygen Saturation 100% 10/21/2024 2:30 PM MANAGER USER EXPERIENCE Inhaled Oxygen Concentration - - Weight 102.7 kg (226 lb 6.6 oz) 025 11:20 AM MANAGER USER EXPERIENCE Height 193 cm (6' 4 ) 10/21/2024 11:20 AM MANAGER USER EXPERIENCE Body Mass Index 27.56 10/21/2024 11:20 AM MANAGER USER EXPERIENCE Plan of Treatment Upcoming Encounters Date Type Department Care Team (Latest Contact Info) Description 12/15/2024 11:30 AM CDT Hospital Encounter [facility] [place] [address] Antonio Varela MD [address] [address] 12/29/2024 7:30 AM CDT Hospital Encounter [facility] [place] [address] Antonio Varela MD [address] [address] 12/29/2024 7:30 AM CDT Anesthesia [facility] [place] [address] Ruth Carranza FNP [address] [place] [address] 12/29/2024 7:30 AM CDT - 12/29/2024 11:[address] [place] [address] Antonio Varela MD [address] [address] ROBOTIC XI ASSISTED LAPAROSCOPIC PROSTATECTOMY WITH BILATERAL PELVIC LYMPH NODE DISSECTION AND CYSTOLITHOLALPAXY BLADDER STONE REMOVAL Scheduled Procedures Name Priority Associated Diagnoses Date/Ti de ROBOTIC XI PROSTATECTOMY PROSTATE CANCER C61 12/29/2024 7:30 AM CDT Health Maintenance Due Date Last Done Comments Hepatitis C 1970 DTaP, Tdap and Td Vaccines ( 1 - Tdap) 1971 Pneumococcal Vaccine: 50+ Years (1 of 2 - PCV) 1971 Zoster Vaccines (1 of 2) 2002 AAA SCREENING 2017 Annual Medicare Wellness Visit 2017 COVID-19 Vaccine (1 - 2023-2 5 season) 2024 RSV Immunization or 60+ Years (1 [...] on patient's age to complete this topic Goals Goal Patient Goal Type Associated Problems Recent Progress Patient-Stated? Author Autogenerat ed Goal Care Plan Autogenerated Problem No Annetta Fitzpatrick, galvanizing pot runner Procedure Name Priority Date/Time Associated Diagnosis Comments US THYROID Routine 11/28/2024 2:49 PM CDT Thyroid nodule BIOPSY OF PROSTATE,NEEDLE/PUN CH 10/21/2024 12:53 PM MANAGER USER EXPERIENCE ABNORMAL PROSTATE SPECIFIC ANTIGEN R97.20 Case Notes SCHED BY FAX 10/07/2024 [facility] PHONE ASSESS PATHOLOGY Routine 10/21/2024 12:00 AM MANAGER USER EXPERIENCE COLONOSCOPY 03/11/2022 6:47 AM CDT from Last 3 Months or Most Recently Relevant to Health Maintenance Results * US THYROID (11/28/2024 2:49 PM CDT) Anatomical Region Laterality Modality Neck Ultrasound 11/28/2024 3:50 PM CDT Impressions 11/29/2024 1:10 PM CDT IMPRESSION: Thyroid nodules as described without suspicious features. The dominant TI RADS 3 nodule on the left meets criteria for biopsy. Ordered By: CLARENCE TOBAR Interpreted By: Kyle Peace MD, 11/28/2024 3:50 PM Narrative 11/29/2024 1:10 PM [address]T [address] [place] [address] Examination: Thyroid ultrasound. Exam time: 1440 hours. Clinical history: History of prostate cancer. Follow-up of incidentally detected left lobe nodule on PET/CT. Comparison: Report of PET/CT scan, 11/18/2024 ([facility]). Technique: Grayscale and color Doppler images. Findings: The right lobe lies within the broad range of normal for size measuring 5.1 x 1.9 x 1.7 cm. The left lobe is enlarged measuring 6.2 x 3.2 x 3.5 cm. The thickness of the isthmus is normal. There is some heterogeneity in the glandular echotexture. There is a sharply circumscribed isoechoic spongiform nodule in the right lobe measuring 1.1 cm in greatest dimension (TI RADS 1, benign). There is a sharply circumscribed heterogeneous primarily isoechoic solid nodule in the right lobe measuring 1.3 cm in greatest dimension (TI RADS 3). There is a sharply circumscribed heterogeneous primarily isoechoic solid nodule in the left lobe measuring 4.7 cm in greatest dimension (TI RADS 3) concordant with the PET/CT findings. No other discrete nodules are identified. No suspicious features are seen. There is no hyperemia on color Doppler. Procedure Note Kyle Peace MD - 11/29/[address] [place] [address] Examination: Thyroid ultrasound. Exam time: 1440 hours. Clinical history: History of prostate cancer. Follow-up of incidentallydetected left lobe nodule on PET/CT. Comparison: Report of PET/CT scan, 11/18/2024 ([facility]). Technique: Grayscale and color Doppler images. Findings: The right lobe lies within the broad range of normal for sizemeasuring 5.1 x 1.9 x 1.7 cm. The left lobe is enlarged measuring 6.2 x3.2 x 3.5 cm. The thickness of the isthmus is normal. There is someheterogeneity in the glandular echotexture. There is a sharplycircumscribed isoechoic spongiform nodule in the right lobe measuring 1.1cm in greatest dimension (TI RADS 1, benign). There is a sharplycircumscribed heterogeneous primarily isoechoic solid nodule in the rightlobe measuring 1.3 cm in greatest dimension (TI RADS 3). There is asharply circumscribed heterogeneous primarily isoechoic solid nodule inthe left lobe measuring 4.7 cm in greatest dimension (TI RADS 3)concordant with the PET/CT findings. No other discrete nodules areidentified. No suspicious features are seen. There is no hyperemia oncolor Doppler. IMPRESSION: Thyroid nodules as described without suspicious features. The dominant TIRADS 3 nodule on the left meets criteria for biopsy. Ordered By: CLARENCE TOBAR Interpreted By: Kyle Peace MD, 11/28/2024 3:50 PM us Clarence Tobar MD ULTRASOUND Final Resul t * Pathology (10/21/2024 12:00 AM MANAGER USER EXPERIENCE) PATHOLOGY [facility] Department of Laboratory Medicine [address] [place] [address] , extension [phone] Pathology Report Surgical Pathology Report Name: MARK ANTHONY VASQUEZ JR. Specimen #: [id number] Age: 11 1950 (Age: 74) Location: [facility] Sex: M Procedure Date: 10/21/2024 [facility] #: [id number] Date Received: 10/24/2024 Date Reported: 10/26/2024 Provider: [...] core biopsies: -Acinar adenocarcinoma, grade group 5 (Wayne score 5+4=9), involving 3 of 3 cores and 10% of total tissue. -See comment. B. Prostate, left lateral apex, core biopsy: -Benign prostatic parenchyma. C. Prostate, left lateral mid, core biopsy: -Benign prostatic parenchyma. -See comment. D. Prostate, left lateral base, core biopsy: -Acinar adenocarcinoma, grade group 3 (Wayne score 4+3=7, with 80% pattern 4) involving 10% of a single core. -See comment. E. Prostate, left medial apex, core biopsy: -Benign prostatic parenchyma. F. Prostate, left medial mid, core biopsy: -Acinar adenocarcinoma, grade group 4 ([place] score 4+4=8) involving 5% of a single core. -See comment. G. Prostate, left medial base, core biopsy: -Benign prostatic parenchyma. H. Prostate, right lateral apex, core biopsy: -Acinar adenocarcinoma, grade group 1 (Wayne score 3+3=6) involving 20% of a single [...] tests were developed by and performed at [facility], [address] [place] [address]. All tests reported here have not been [...] interpretation, and sign out were performed at [facility], [address] [place] [address]. Electronically Signed Out YOHANNES DIEZ MD [facility] TISSUE PROSTATE / Unknown 11:56 AM MANAGER USER EXPERIENCE Tissue specimen (specimen) PROSTATE / Unknown 10/21/2024 11:56 AM MANAGER USER EXPERIENCE Tissue specimen (specimen) PROSTATE / Unknown 10/21/2024 11:56 AM MANAGER USER EXPERIENCE Tissue specimen (specimen) PROSTATE / Unknown 10/21/2024 11:56 AM MANAGER USER EXPERIENCE Tissue specimen (specimen) PROSTATE / Unknown 10/21/2024 11:56 AM MANAGER USER EXPERIENCE Tissue specimen (specimen) PROSTATE / Unknown 10/21/2024 11:56 AM MANAGER USER EXPERIENCE Tissue specimen (specimen) PROSTATE / Unknown 10/21/2024 11:56 AM MANAGER USER EXPERIENCE Tissue specimen (specimen) PROSTATE / Unknown 10/21/2024 11:56 AM MANAGER USER EXPERIENCE Tissue specimen (specimen) PROSTATE / Unknown 10/21/2024 11:56 AM MANAGER USER EXPERIENCE Tissue specimen (specimen) PROSTATE / Unknown 10/21/2024 11:56 AM MANAGER USER EXPERIENCE Tissue specimen (specimen) PROSTATE / Unknown 10/21/2024 11:56 AM MANAGER USER EXPERIENCE Tissue specimen (specimen) PROSTATE / Unknown 10/21/2024 11:56 AM MANAGER USER EXPERIENCE Tissue specimen (specimen) PROSTATE / Unknown 10/21/2024 11:56 AM MANAGER USER EXPERIENCE Antonio Varela MD PATHOLOGY/CYTOLOGY ORDERABLES F inal Result [facility] [address] [place] [address], [id number] * Colonoscopy (03/11/2022 6:47 AM CDT) Thong Lott MD GI PROCEDURE ORDERABLES Final Result from Last 3 Months or Most Recently Relevant to Health Maintenance Additional Health Concerns Active Problems Noted Date Diagnosed Date Autogenerated Problem 12/14/2024 Insurance MEDICARE Care Teams All Round Butcher Relationship Specialty Start Date End Date Clarence Tobar MD [address] [place] [address] PCP - General FAMILY PRACTICE 09/16/19
== END 2024-12-14 13:46 | disposition home or self-care (01) ==
PROVIDERS: PCP Family Medicine; Visit Provider Orthopaedic Surgery
DX: M16.0 Bilateral primary osteoarthritis of hip (principal)
CPT/HCPCS: 20610; 77002; J1010; Q9966